=== PATIENT | female | born 1940 | race Caucasian/White ===

== ENCOUNTER 2018-05-28 06:53 | Emergency (ER) | payer MEDICARE ==
--- NOTE | 2018-05-28 07:39 | EDM.PDOC ---
ED HPI GENERAL MEDICAL PROBLEM - General Chief Complaint: Respiratory Problem Stated Complaint: dyspnea Time Seen by Provider: 05/28/18 07:22 Source of Information: Reports: Patient History Limitations: Reports: No Limitations - History of Present Illness INITIAL COMMENTS - FREE TEXT/NARRATIVE: States that she couldn't sleep last night and then this morning she felt SOB. States that she replaced the mask on her cpap recently and wonders if that was it. EMS states that they found her in recliner with cpap on with poor seal. When I examined her she states that she feels well except she couldn't sleep last night and this morning she felt SOB. No cough. She states that she feels good now. Denies any chest pain or ever having edema. Onset: Sudden Duration: Resolved Prior to Arrival Associated Symptoms: Denies: Chest Pain, Cough, cough w sputum - Related Data Allergies Allergy/AdvReac Type Severity Reaction Status Date / Time propoxyphene [From Darvon] Allergy Other Verified 05/28/18 07:03 Home Meds: Home Meds PARoxetine HCl [Paxil] 40 mg PO DAILY 05/28/18 [History] buPROPion [Wellbutrin SR] 100 mg PO DAILY 05/28/18 [History] traZODone HCl [Trazodone HCl] 50 mg PO DAILY 05/28/18 [History] Past Medical History Cardiovascular History: Reports: Other (See Below) Other Cardiovascular History: Cotpe-Thsgqudsw-Udjmh Syndrome Respiratory History: Reports: Sleep Apnea - Past Surgical History Cardiovascular Surgical History: Reports: Other (See Below) 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 Musculoskeletal Surgical History: Reports: Arthroscopic Knee Social & Family History - Tobacco Use Smoking Status *Q: Never Smoker - Recreational Drug Use Recreational Drug Use: No - Living Situation & Occupation Living situation: Reports: , Alone Occupation: Retired ED ROS GENERAL - Review of Systems Review Of Systems: See Below Constitutional: Denies: Fever, Chills, Weakness HEENT: Reports: No Symptoms Respiratory: Reports: Other (see HPI) Cardiovascular: Denies: Chest Pain, Edema Endocrine: Reports: No Symptoms GI/Abdominal: Reports: No Symptoms Musculoskeletal: Reports: No Symptoms Skin: Reports: No Symptoms Neurological: Reports: No Symptoms. Denies: Confusion ED EXAM, GENERAL - Physical Exam Exam: See Below Exam Limited By: No Limitations General Appearance: Alert, WD/WN, No Apparent Distress Ears: Normal External Exam, Normal Canal, Normal TMs Nose: Normal Inspection Throat/Mouth: Normal Inspection, Normal Oropharynx Head: Atraumatic, Normocephalic Neck: Normal Inspection, Supple, Non-Tender, Full Range of Motion Respiratory/Chest: No Respiratory Distress, Lungs Clear, Normal Breath Sounds Cardiovascular: Regular Rate, Rhythm, No Edema GI/Abdominal: Normal Bowel Sounds, Soft, Non-Tender, No Organomegaly Back Exam: Normal Inspection, Full Range of Motion Extremities: Normal Inspection, No Pedal Edema, Normal Capillary Refill Neurological: Alert, Oriented, CN II-XII Intact Skin Exam: Warm, Dry, Intact EKG INTERPRETATION EKG Date: 05/28/18 Rhythm: Other (1st degree AV block) Rate (Beats/Min): 68 Course - Vital Signs Last Recorded V/S: Last Vital Signs Temp 99 F 05/28/18 06:54 Pulse 72 05/28/18 06:54 Resp 28 H 05/28/18 06:54 BP 150/76 H 05/28/18 06:54 Pulse Ox 98 05/28/18 06:54 - Orders/Labs/Meds Orders: Active Orders 24 hr Category Date Time Status Chest 2V [CR] Stat Exams 05/28/18 07:10 Taken COMPREHENSIVE METABOLIC PN,CMP [CHEM] Stat Lab 05/28/18 07:20 Received CREATINE KINASE,CK [CHEM] Stat Lab 05/28/18 07:20 Received D Dimer [D-DIMER QUANTITATIVE] [COAG] Stat Lab 05/28/18 07:20 Received LACTATE DEHYDROGENASE,LDH [CHEM] Stat Lab 05/28/18 07:20 Received TROPONIN I [CHEM] Stat Lab 05/28/18 07:20 Received EKG 12 Lead [EK] Routine Ther 05/28/18 07:10 Ordered Labs: Laboratory Tests 05/28/18 Range/Units 07:11 WBC 4.6 L (5.0-10.0) 10^3/uL RBC 4.07 (4.00-5.50) 10^6/uL Hgb 12.5 (12.0-16.0) g/dL Hct 37.9 (37.0-47.0) % MCV 93.1 (82.0-94.0) fL MCH 30.7 (27.0-32.0) pg MCHC 33.0 (33.0-38.0) g/dL RDW Coeff of Ariela 12.3 (11.0-15.0) % Plt Count 196 (150-400) 10^3/uL Neut % (Auto) 72.9 (35-85) % Lymph % (Auto) 15.8 (10-55) % [place] % (Auto) 9.6 (0-16) % Eos % (Auto) 1.3 (0-5) % Baso % (Auto) 0.4 (0-3) % Neut # (Auto) 3.32 (1.80-7.00) 10^3/uL Lymph # (Auto) 0.72 L (1.00-4.80) 10^3/uL [place] # (Auto) 0.44 (0.00-0.80) 10^3/uL Eos # (Auto) 0.06 (0.00-0.45) 10^3/uL Baso # (Auto) 0.02 10^3/uL - Re-Assessments/Exams Free Text/Narrative Re-Assessment/Exam: 05/28/18 07:52 In to discuss lab, CXR and EKG with pt and sister. All are normal. Discussed that she may need to have her cpap checked. She feels that the mask is too small. She will call her supplier and recheck it. Current O2 sat on room air is 97%. Departure - Departure Time of Disposition: 07:53 Disposition: Home, Self-Care 01 Condition: Good Clinical Impression: Sleep apnea in adult - Discharge Information *PRESCRIPTION DRUG MONITORING PROGRAM REVIEWED*: Not Applicable *COPY OF PRESCRIPTION DRUG MONITORING REPORT IN PATIENT ALESHIA: Not Applicable Additional Instructions: call supplier of cpap to have them look at machine and check on fit of mask Recheck if any new concerns noted. - Problem List & Annotations (1) Sleep apnea in adult SNOMED Code(s): 53756378 Code(s): G47.30 - SLEEP APNEA, UNSPECIFIED Status: Chronic Priority: Medium - Problem List Review Problem List Initiated/Reviewed/Updated: Yes - My Orders Last 24 Hours: My Active Orders 05/28/18 07:10 Chest 2V [CR] Stat EKG 12 Lead [EK] Routine 05/28/18 07:20 COMPREHENSIVE METABOLIC PN,CMP [CHEM] Stat CREATINE KINASE,CK [CHEM] Stat D Dimer [D-DIMER QUANTITATIVE] [COAG] Stat LACTATE DEHYDROGENASE,LDH [CHEM] Stat TROPONIN I [CHEM] Stat - Assessment/Plan Last 24 Hours: My Active Orders 05/28/18 07:10 Chest 2V [CR] Stat EKG 12 Lead [EK] Routine 05/28/18 07:20 COMPREHENSIVE METABOLIC PN,CMP [CHEM] Stat CREATINE KINASE,CK [CHEM] Stat D Dimer [D-DIMER QUANTITATIVE] [COAG] Stat LACTATE DEHYDROGENASE,LDH [CHEM] Stat TROPONIN I [CHEM] Stat
[2018-05-28 07:42] LABS: CHLORIDE,CL 106 mEq/L (98-106); SODIUM,NA 141 mEq/L (136-145)
== END 2018-05-28 08:00 | disposition home or self-care (01) ==
LOC: CC.ED 06:53
DX: G47.30 Sleep apnea, unspecified (principal); Z88.8 Allergy status to other drugs, medicaments and biological substances
CPT/HCPCS: 36415; 71046; 80053; 82550; 83615; 84484; 85025; 85379; 93005; 99285

== ENCOUNTER 2020-08-16 14:18 | Inpatient (IN) | payer MEDICARE ==
[2020-08-16 14:49] LABS: O2 DELIVERY DEVICE OM
[2020-08-16 14:56] LABS: BASE EXCESS ARTERIAL 1.3 (-2.0-3.0); BICARBONATE,ARTERIAL 22.4 mm/L (22.0-26.0); O2 SATURATION ARTERIAL 100 % (95-98); PCO2 ARTERIAL 21 mm/Hg0 (35-45); PO2 ARTERIAL 188 mm/Hg (80-100)
[2020-08-16 15:15] LABS: CHLORIDE,CL 102 mEq/L (98-106); SODIUM,NA 141 mEq/L (136-145)
[2020-08-16 15:26] LABS: PTT,PARTIAL THROMBOPLSTIN TIME 22.2 SEC (23.2-32.3)
[2020-08-16] MEDS ORDERED: Potassium Chloride 20 MEQ in Premix Bag 1 BAG IV ONE (15:28)
[2020-08-16] MEDS ORDERED: cefTRIAXone 1 GM Vial IVPUSH SCH (15:30)
[2020-08-16] MEDS: Sodium Chloride 0.9% 1,000 ML IV SCH ×2 (16:29→21:26)
--- NOTE | 2020-08-16 17:28 | EDM.PDOC ---
ED HPI GENERAL MEDICAL PROBLEM - General Chief Complaint: General Stated Complaint: SOB/TINGLING FT AND HANDS Time Seen by Provider: 08/16/20 14:27 Source of Information: Reports: Patient, EMS History Limitations: Reports: Altered Mental Status - History of Present Illness INITIAL COMMENTS - FREE TEXT/NARRATIVE: Gail is an 80 yo female who was brought into the ED via [facility] with concerns of shortness of breath and tingling in her hands and feet. Symptoms started today. She had called a relative (nephew) who felt she needed further evaluation. Patient lives at home alone by [address]. She has relatives who check on her daily and bring her meals. She denied any chest pain. No headaches. Denies any upper respiratory symptoms. Denied any diarrhea. States she was urina ting a lot. Initially upon arrival, she had an altered mental status. Patient did want to sleep mostly. 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 Denies: Wheezing Cardiovascular: Denies: Chest Pain, Palpitations, Syncope GI/Abdominal: Reports: No Symptoms : Reports: Frequency Musculoskeletal: Reports: No Symptoms Skin: Reports: No Symptoms Neurological: Reports: Confusion. Denies: Headache, Seizure, Syncope, Trouble Speaking, Difficulty Walking, Weakness, Change in Speech Psychiatric: Reports: No Symptoms ED EXAM, GENERAL - Physical Exam Exam: See Below Exam Limited By: Altered Mental Status (initially) General Appearance: Lethargic, Thin Eye Exam: Bilateral Eye: EOMI, PERRL Ears: Normal External Exam, Hearing Grossly Normal Nose: Normal Inspection, Normal Mucosa, No Blood Throat/Mouth: Normal Inspection, Normal Lips, Normal Oropharynx, Normal Voice, No Airway Compromise Head: Atraumatic, Normocephalic Neck: Normal Inspection, Supple, Non-Tender Respiratory/Chest: No Respiratory Distress, Lungs Clear, Normal Breath Sounds, No Accessory Muscle Use Cardiovascular: Regular Rate, Rhythm, No Edema, No Murmur GI/Abdominal: Normal Bowel Sounds, Soft, Non-Tender, No Organomegaly, No Distention, No Mass Extremities: Normal Inspection, No Pedal Edema Neurological: Alert, Slow to Respond Psychiatric: Flat Affect Skin Exam: Cool #1 Interpretation EKG Date: 08/16/20 Time: 14:43 Comparison: NA - No Prior EKG Course - Vital Signs Last Recorded V/S: Last Vital Signs Temp 97.2 F 08/16/20 16:31 Pulse 72 08/16/20 16:31 Resp 18 08/16/20 16:31 BP 157/73 H 08/16/20 16:31 Pulse Ox 100 08/16/20 16:31 - Orders/Labs/Meds Orders: Active Orders 24 hr Category Date Time Status Telemetry Monitoring [Cardiac Monitoring] [RC] 0800, Care 08/16/20 15:28 Active 2000 Chest 2V [CR] Routine Exams 08/16/20 Taken Head wo Cont [CT] Stat Exams 08/16/20 16:17 Taken CULTURE BLOOD [BC] Stat Lab 08/16/20 15:48 Received CULTURE BLOOD [BC] Stat Lab 08/16/20 15:48 Received Potassium Chloride [KCL in Water 20 MEQ/100 ML] 20 meq Med 08/16/20 15:28 Active Premix Bag 1 bag IV ONETIME Sodium Chloride 0.9% [Normal Saline] 1,000 ml Med 08/16/20 15:30 Active IV ASDIRECTED cefTRIAXone [Rocephin] Med 08/16/20 15:30 Active 1 gm IVPUSH Q24H Blood Culture x2 Reflex Set [OM.PC] Stat Oth 08/16/20 15:27 Ordered Medication Orders Ceftriaxone Sodium (Ceftriaxone 1 Gm Vial) 1 gm IVPUSH Q24H [facility] Last Admin: 08/16/20 16:29 Dose: 1 gm Documented by: ADOLFO Sodium Chloride (Normal Saline) 1,000 mls @ 75 mls/hr IV ASDIRECTED [facility] Last Admin: 08/16/20 16:29 Dose: 75 mls/hr Documented by: ADOLFO Potassium Chloride 20 meq/ (Premix) 100 mls @ 25 mls/hr IV ONETIME ONE Stop: 08/16/20 19:27 Last Admin: 08/16/20 16:30 Dose: 25 mls/hr Documented by: ADOLFO Labs: Laboratory Tests 08/16/20 08/16/20 08/16/20 Range/Units 14:45 14:45 14:45 WBC 6.6 (5.0-10.0) 10^3/uL RBC 4.28 (4.00-5.50) 10^6/uL Hgb 13.7 (12.0-16.0) g/dL Hct 40.2 (37.0-47.0) % MCV 93.9 (82.0-94.0) fL MCH 32.0 (27.0-32.0) pg MCHC 34.1 (33.0-38.0) g/dL RDW Coeff of Ariela 13.3 (11.0-15.0) % Plt Count 249 (150-400) 10^3/uL Neut % (Auto) 72.3 (35-85) % Lymph % (Auto) 18.0 (10-55) % [place] % (Auto) 8.6 (0-16) % Eos % (Auto) 0.8 (0-5) % Baso % (Auto) 0.3 (0-3) % Neut # (Auto) 4.78 (1.80-7.00) 10^3/uL Lymph # (Auto) 1.19 (1.00-4.80) 10^3/uL [place] # (Auto) 0.57 (0.00-0.80) 10^3/uL Eos # (Auto) 0.05 (0.00-0.45) 10^3/uL Baso # (Auto) 0.02 10^3/uL PT 10.6 (9.7-12.3) SEC INR 0.97 (0.92-1.18) APTT 22.2 L (23.2-32.3) SEC D-Dimer, Quantitative 0.42 (0.00-0.50) ABG pH (7.35-7.45) ABG pCO2 (35-45) mm/Hg0 ABG pO2 (80-100) mm/Hg ABG HCO3 (22.0-26.0) mm/L ABG O2 Saturation (95-98) % ABG Base Excess (-2.0-3.0) O2 Delivery Device Oxygen Flow Rate Sodium 141 (136-145) mEq/L Potassium 3.1 L D (3.5-5.0) mEq/L Chloride 102 (98-106) mEq/L Carbon Dioxide 23 (21-32) mmol/L BUN 27 H (7-18) mg/dL Creatinine 0.8 (0.6-1.0) mg/dL Est Cr Clr Drug Dosing 51.63 mL/min Estimated GFR (MDRD) > 60 (>=60) mL/min Glucose 106 H D (75-99) mg/dL Lactic Acid (0.4-2.0) mmol/L Calcium 9.8 (8.4-10.1) mg/dL Magnesium (1.8-2.4) mg/dL Total Bilirubin 0.6 (0.0-1.0) mg/dL AST 22 (15-37) U/L ALT 23 (12-78) U/L Alkaline Phosphatase 79 (46-116) U/L Lactate Dehydrogenase 199 H (100-190) U/L Creatine Kinase 101 (21-215) U/L Troponin I < 0.017 (0.00-0.06) ng/mL C-Reactive Protein < 0.2 L (0.2-0.8) mg/dL Total Protein 7.5 (6.4-8.2) g/dL Albumin 4.1 (3.4-5.0) g/dL Lipase 70 L (73-393) U/L Urine Color (YELLOW) Urine Appearance (CLEAR) Urine pH (4.5-8.0) Ur Specific [place]oss (1.003-1.020) Urine Protein (NEGATIVE) mg/dL Urine Glucose (UA) (NEGATIVE) mg/dL Urine Ketones (NEGATIVE) mg/dL Urine Occult Blood (NEGATIVE) Urine Nitrite (NEGATIVE) Urine Bilirubin (NEGATIVE) Urine Urobilinogen (0.2-1.0) EU/dL Ur Leukocyte Esterase (NEGATIVE) Urine RBC (0-5) /HPF Urine WBC (0-5) /HPF Ur Epithelial Cells (NOT SEEN) /HPF Amorphous Sediment (NOT SEEN) /HPF Urinalysis Comment SARS CoV-2 RNA Rapid LETTY (NEGATIVE) 08/16/20 08/16/20 08/16/20 Range/Units 14:48 14:51 15:17 WBC (5.0-10.0) 10^3/uL RBC (4.00-5.50) 10^6/uL Hgb (12.0-16.0) g/dL Hct (37.0-47.0) % MCV (82.0-94.0) fL MCH (27.0-32.0) pg MCHC (33.0-38.0) g/dL RDW Coeff of Ariela (11.0-15.0) % Plt Count (150-400) 10^3/uL Neut % (Auto) (35-85) % Lymph % (Auto) (10-55) % [place] % (Auto) (0-16) % Eos % (Auto) (0-5) % Baso % (Auto) (0-3) % Neut # (Auto) (1.80-7.00) 10^3/uL Lymph # (Auto) (1.00-4.80) 10^3/uL [place] # (Auto) (0.00-0.80) 10^3/uL Eos # (Auto) (0.00-0.45) 10^3/uL Baso # (Auto) 10^3/uL PT (9.7-12.3) SEC INR (0.92-1.18) APTT (23.2-32.3) SEC D-Dimer, Quantitative (0.00-0.50) ABG pH 7.62 H (7.35-7.45) ABG pCO2 21 L (35-45) mm/Hg0 ABG pO2 188 H (80-100) mm/Hg ABG HCO3 22.4 (22.0-26.0) mm/L ABG O2 Saturation 100 H (95-98) % ABG Base Excess 1.3 (-2.0-3.0) O2 Delivery Device Om Oxygen Flow Rate 6.0 Sodium (136-145) mEq/L Potassium (3.5-5.0) mEq/L Chloride (98-106) mEq/L Carbon Dioxide (21-32) mmol/L BUN (7-18) mg/dL Creatinine (0.6-1.0) mg/dL Est Cr Clr Drug Dosing mL/min Estimated GFR (MDRD) (>=60) mL/min Glucose (75-99) mg/dL Lactic Acid 3.1 H (0.4-2.0) mmol/L Calcium (8.4-10.1) mg/dL Magnesium (1.8-2.4) mg/dL Total Bilirubin (0.0-1.0) mg/dL AST (15-37) U/L ALT (12-78) U/L Alkaline Phosphatase (46-116) U/L Lactate Dehydrogenase (100-190) U/L Creatine Kinase (21-215) U/L Troponin I (0.00-0.06) ng/mL C-Reactive Protein (0.2-0.8) mg/dL Total Protein (6.4-8.2) g/dL Albumin (3.4-5.0) g/dL Lipase (73-393) U/L Urine Color Yellow (YELLOW) Urine Appearance Cloudy (CLEAR) Urine pH 7.5 (4.5-8.0) Ur Specific Voss 1.025 H (1.003-1.020) Urine Protein Negative (NEGATIVE) mg/dL Urine Glucose (UA) Negative (NEGATIVE) mg/dL Urine Ketones 15 H (NEGATIVE) mg/dL Urine Occult Blood Negative (NEGATIVE) Urine Nitrite Negative (NEGATIVE) Urine Bilirubin Negative (NEGATIVE) Urine Urobilinogen 1.0 (0.2-1.0) EU/dL Ur Leukocyte Esterase Negative (NEGATIVE) Urine RBC Not seen (0-5) /HPF Urine WBC 0-5 (0-5) /HPF Ur Epithelial Cells Few H (NOT SEEN) /HPF Amorphous Sediment Moderate H (NOT SEEN) /HPF Urinalysis Comment SARS CoV-2 RNA Rapid LETTY (NEGATIVE) 08/16/20 08/16/20 Range/Units 15:26 15:26 WBC (5.0-10.0) 10^3/uL RBC (4.00-5.50) 10^6/uL Hgb (12.0-16.0) g/dL Hct (37.0-47.0) % MCV (82.0-94.0) fL MCH (27.0-32.0) pg MCHC (33.0-38.0) g/dL RDW Coeff of Ariela (11.0-15.0) % Plt Count (150-400) 10^3/uL Neut % (Auto) (35-85) % Lymph % (Auto) (10-55) % [place] % (Auto) (0-16) % Eos % (Auto) (0-5) % Baso % (Auto) (0-3) % Neut # (Auto) (1.80-7.00) 10^3/uL Lymph # (Auto) (1.00-4.80) 10^3/uL [place] # (Auto) (0.00-0.80) 10^3/uL Eos # (Auto) (0.00-0.45) 10^3/uL Baso # (Auto) 10^3/uL PT (9.7-12.3) SEC INR (0.92-1.18) APTT (23.2-32.3) SEC D-Dimer, Quantitative (0.00-0.50) ABG pH (7.35-7.45) ABG pCO2 (35-45) mm/Hg0 ABG pO2 (80-100) mm/Hg ABG HCO3 (22.0-26.0) mm/L ABG O2 Saturation (95-98) % ABG Base Excess (-2.0-3.0) O2 Delivery Device Oxygen Flow Rate Sodium (136-145) mEq/L Potassium (3.5-5.0) mEq/L Chloride (98-106) mEq/L Carbon Dioxide (21-32) mmol/L BUN (7-18) mg/dL Creatinine (0.6-1.0) mg/dL Est Cr Clr Drug Dosing mL/min Estimated GFR (MDRD) (>=60) mL/min Glucose (75-99) mg/dL Lactic Acid (0.4-2.0) mmol/L Calcium (8.4-10.1) mg/dL Magnesium 1.9 (1.8-2.4) mg/dL Total Bilirubin (0.0-1.0) mg/dL AST (15-37) U/L ALT (12-78) U/L Alkaline Phosphatase (46-116) U/L Lactate Dehydrogenase (100-190) U/L Creatine Kinase (21-215) U/L Troponin I (0.00-0.06) ng/mL C-Reactive Protein (0.2-0.8) mg/dL Total Protein (6.4-8.2) g/dL Albumin (3.4-5.0) g/dL Lipase (73-393) U/L Urine Color (YELLOW) Urine Appearance (CLEAR) Urine pH (4.5-8.0) Ur Specific [place]oss (1.003-1.020) Urine Protein (NEGATIVE) mg/dL Urine Glucose (UA) (NEGATIVE) mg/dL Urine Ketones (NEGATIVE) mg/dL Urine Occult Blood (NEGATIVE) Urine Nitrite (NEGATIVE) Urine Bilirubin (NEGATIVE) Urine Urobilinogen (0.2-1.0) EU/dL Ur Leukocyte Esterase (NEGATIVE) Urine RBC (0-5) /HPF Urine WBC (0-5) /HPF Ur Epithelial Cells (NOT SEEN) /HPF Amorphous Sediment (NOT SEEN) /HPF Urinalysis Comment SARS CoV-2 RNA Rapid LETTY Negative (NEGATIVE) Meds: Medications Generic Name Dose Route Start Last Admin Trade Name Freq PRN Reason Stop Dose Admin Ceftriaxone Sodium 1 gm 08/16/20 15:30 08/16/20 16:29 Ceftriaxone 1 Gm Vial IVPUSH 1 gm Q24H TRI Administration Sodium Chloride 1,000 mls @ 75 mls/hr 08/16/20 15:30 08/16/20 16:29 Normal Saline IV 75 mls/hr ASDIRECTED TRI Administration Potassium Chloride 20 meq/ 100 mls @ 25 mls/hr 08/16/20 15:28 08/16/20 16:30 Premix IV 08/16/20 19:27 25 mls/hr ONETIME ONE Administration Departure - Departure Time of Disposition: 16:30 Disposition: Admitted As Inpatient 65 Clinical Impression: Altered mental status Qualifiers: Altered mental status type: transient alteration of awareness Qualified Co de(s): R40.4 - Transient alteration of awareness - Discharge Information *PRESCRIPTION DRUG MONITORING PROGRAM REVIEWED*: Not Applicable *COPY OF PRESCRIPTION DRUG MONITORING REPORT IN PATIENT ALESHIA: Not Applicable Sepsis Event Note (ED) - Evaluation Sepsis Screening Result: Possible Sepsis Risk - Focused Exam Vital Signs: Vital Signs Temp Pulse Resp BP Pulse Ox 08/16/20 15:39 96.7 F L 80 24 H 145/89 H 85 L 08/16/20 15:12 70 20 179/95 H 99 08/16/20 14:57 68 20 176/85 H 100 08/16/20 14:42 96.7 F L 65 20 153/73 H 99 08/16/20 14:27 96.7 F L 80 24 H 145/89 H 85 L - Problem List & Annotations (1) Altered mental status SNOMED Code(s): 830940736 Code(s): R41.82 - ALTERED MENTAL STATUS, UNSPECIFIED Status: Acute Current Visit: Yes Qualifiers: Altered mental status type: transient alteration of awareness Qualified Code(s): R40.4 - Transient alteration of awareness - My Orders Last 24 Hours: My Active Orders 08/16/20 Chest 2V [CR] Routine 08/16/20 15:27 Blood Culture x2 Reflex Set [OM.PC] Stat 08/16/20 15:28 Telemetry Monitoring [Cardiac Monitoring] [RC] 0800,1999 Potassium Chloride [KCL in Water 20 MEQ/100 ML] 20 meq Premix Bag 1 bag IV ONETIME 08/16/20 15:30 Sodium Chloride 0.9% [Normal Saline] 1,000 ml IV ASDIRECTED cefTRIAXone [Rocephin] 1 gm IVPUSH Q24H 08/16/20 15:48 CULTURE BLOOD [BC] Stat CULTURE BLOOD [BC] Stat 08/16/20 16:17 Head wo Cont [CT] Stat - Assessment/Plan Admission H&P: Please use this note as an admission H&P Last 24 Hours: My Active Orders 08/16/20 Chest 2V [CR] Routine 08/16/20 15:27 Blood Culture x2 Reflex Set [OM.PC] Stat 08/16/20 15:28 Telemetry Monitoring [Cardiac Monitoring] [RC] 0800,2000 Potassium Chloride [KCL in Water 20 MEQ/100 ML] 20 meq Premix Bag 1 bag IV ONETIME 08/16/20 15:30 Sodium Chloride 0.9% [Normal Saline] 1,000 ml IV ASDIRECTED cefTRIAXone [Rocephin] 1 gm IVPUSH Q24H 08/16/20 15:48 CULTURE BLOOD [BC] Stat CULTURE BLOOD [BC] Stat 08/16/20 16:17 Head wo Cont [CT] Stat Plan: Patient initially had intermittent episodes of altered mental status. GCS of 15. No sign of trauma. No other neurological deficits noted. Lactic acid was elevated. Concerns of sepsis; however, no known cause identified. WBC normal. Lactic acid elevated. Urinalysis clear. Chest x-ray showed no acute cardiopulmonary disease. CT head negative. Consulted with Dr. arreguin and will admi t to acute care. 1 gm of Rocephin given IV. Blood cultures ordered prior. Patient is more alert and responding to all questions. Patient is ambulatory and currently showing no sign of distress. Vital signs are stable.
[2020-08-16] MEDS ORDERED: Acetaminophen 325 MG Tab PO PRN (17:57)
[2020-08-16] MEDS ORDERED: Ondansetron 4 MG/2 ML SDV IVPUSH PRN (17:57)
[2020-08-16] MEDS ORDERED: Docusate Sodium 100 MG Cap PO PRN (20:00)
[2020-08-16] MEDS ORDERED: Enoxaparin 40 MG/0.4 ML Syringe SUBCUT SCH (20:00)
[2020-08-17 07:53] LABS: CHLORIDE,CL 108 mEq/L (98-106); SODIUM,NA 143 mEq/L (136-145)
[2020-08-17] MEDS ORDERED: cefTRIAXone 1 GM Vial IVPUSH SCH (13:30)
--- NOTE | 2020-08-18 15:58 | PCM.DCSUM1 ---
Discharge Summary - Hospital Course HPI Initial Comments: Gail is an 80 yo female who was admitted to the hospital yesterday evening. She was initially brought into the ED via [facility] with concerns of shortness of breath and tingling in her hands and feet. Symptoms had started yesterday. She had called a relative (nephew) who felt she needed further evaluation. Patient lives at home alone by [place]. She has relatives who check on her daily and bring her meals. She denied any chest pain. No headaches. Denies any upper respiratory symptoms. Denied any diarrhea. States she was urinating a lot. Initially upon arrival, she had an altered mental status. Patient did want to sleep mostly. Diagnosis: Stroke: No - Discharge Data Discharge Date: 08/17/20 Discharge Disposition: Home, Self-Care 01 Condition: Good - Referral to Home Health Primary Care Physician: PCP Unknown - Discharge Diagnosis/Problem(s) (1) Altered mental status SNOMED Code(s): 437463412 ICD Code: R41.82 - ALTERED MENTAL STATUS, UNSPECIFIED Status: Acute Qualifiers: Altered mental status type: transient alteration of awareness Qualified Code(s): R40.4 - Transient alteration of awareness - Patient Instructions Diet: Usual Diet as Tolerated Activity: As Tolerated Notify Provider of: Fever - Discharge Plan *PRESCRIPTION DRUG MONITORING PROGRAM REVIEWED*: Not Applicable *COPY OF PRESCRIPTION DRUG MONITORING REPORT IN PATIENT ALESHIA: Not Applicable Prescriptions/Med Rec: Cefuroxime [Ceftin] 250 mg PO BID #14 tab Home Medications: Home Meds Meloxicam 7.5 mg PO DAILY 08/16/20 [History] Acetaminophen [Tylenol] 650 mg PO Q4H PRN tablet 08/17/20 [Rx] Cefuroxime [Ceftin] 250 mg PO BID #14 tab 08/17/20 [Rx] Oxygen Therapy Mode: Room Air Forms: ED Department Discharge Referrals: Royal Sevilla PA-C [Emergency Provider] - (2 weeks) - Discharge Summary/Plan Comment DC Time >30 min.: Yes Discharge Summary/Plan Comment: Will start patient on Ceftin 250mg twice a day for 7 days. Patient is to follow up with primary in the next 2 weeks. Patient feels safe returning home and wishes to be discharged today. She has been active walking around the hallway and her room. She is fully alert and aware of her symptoms yesterday and denies any further presence of them. - General Info Subjective Update: Patient is in good spirits this morning. She is up and walking around. Denies any further symptoms at this time. - Review of Systems General: Reports: No Symptoms HEENT: Reports: No Symptoms Pulmonary: Reports: No Symptoms Cardiovascular: Reports: No Symptoms Gastrointestinal: Reports: No Symptoms Genitourinary: Reports: No Symptoms Musculoskeletal: Reports: No Symptoms Skin: Reports: No Symptoms Neurological: Reports: No Symptoms - Patient Data Vitals - Most Recent: Last Vital Signs Temp 96.4 F L 08/17/20 11:54 Pulse 59 L 08/17/20 11:54 Resp 16 08/17/20 11:54 BP 149/78 H 08/17/20 11:54 Pulse Ox 100 08/17/20 11:54 Weight - Most Recent: 127 lb 9.6 oz ARACELY Results - Last 24 hrs: Microbiology 08/16/20 15:48 Aerobic Blood Culture - Preliminary Blood - Venous NO GROWTH AFTER 2 DAYS Anaerobic Blood Culture - Preliminary NO GROWTH AFTER 2 DAYS 08/16/20 15:48 Aerobic Blood Culture - Preliminary Blood - Venous - Lab Draw NO GROWTH AFTER 2 DAYS Anaerobic Blood Culture - Preliminary NO GROWTH AFTER 2 DAYS Med Orders - Current: Current Medications Discontinued Medications Acetaminophen (Acetaminophen 325 Mg Tab) 650 mg PO Q4H PRN PRN Reason: Pain (Mild 1-3)/fever Ceftriaxone Sodium (Ceftriaxone 1 Gm Vial) 1 gm IVPUSH Q24H [facility] Last Admin: 08/16/20 16:29 Dose: 1 gm Documented by: Ceftriaxone Sodium (Ceftriaxone 1 Gm Vial) 1 gm IVPUSH Q24H [facility] Last Admin: 08/17/20 13:29 Dose: 1 gm Documented by: Docusate Sodium (Docusate Sodium 100 Mg Cap) 100 mg PO BID PRN PRN Reason: Constipation Enoxaparin Sodium (Enoxaparin 40 Mg/0.4 Ml Syringe) 40 mg SUBCUT BEDTIME [facility] Last Admin: 08/16/20 20:51 Dose: 40 mg Documented by: Sodium Chloride (Normal Saline) 1,000 mls @ 75 mls/hr IV ASDIRECTED [facility] Last Admin: 08/16/20 21:26 Dose: 75 mls/hr Documented by: Potassium Chloride 20 meq/ (Premix) 100 mls @ 25 mls/hr IV ONETIME ONE Stop: 08/16/20 19:27 Last Admin: 08/16/20 16:30 Dose: 25 mls/hr Documented by: Ondansetron HCl (Ondansetron 4 Mg/2 Ml Sdv) 4 mg IVPUSH Q4H PRN PRN Reason: Nausea/Vomiting - Exam General: Reports: Alert, Oriented, Cooperative, No Acute Distress Lungs: Reports: Clear to Auscultation, Normal Respiratory Effort Cardiovascular: Reports: Regular Rate, Regular Rhythm GI/Abdominal Exam: Normal Bowel Sounds, Soft, Non-Tender, No Organomegaly Extremities: Normal Inspection, No Pedal Edema Skin: Reports: Warm, Dry, Intact Neurological: Reports: No New Focal Deficit Psy/Mental Status: Reports: Alert, Normal Affect, Normal Mood
== END 2020-08-17 13:49 | disposition home or self-care (01) | DRG 884 ==
LOC: CC.ED 14:18 → UNDOADMIN 16:29 → CC.MS 16:29
PROVIDERS: ADMIT Physician Assistant Medical; ATTEND Family Medicine
DX: R40.4 Transient alteration of awareness (principal); R41.82 Altered mental status, unspecified; G47.30 Sleep apnea, unspecified; M06.9 Rheumatoid arthritis, unspecified; R79.89 Other specified abnormal findings of blood chemistry; Z88.8 Allergy status to other drugs, medicaments and biological substances; G20 Parkinson's disease; I45.6 Pre-excitation syndrome; Z20.822 Contact with and (suspected) exposure to COVID-19; Z88.5 Allergy status to narcotic agent; Z79.899 Other long term (current) drug therapy
CPT/HCPCS: 36415; 36600; 70450; 71046; 80048; 80053; 81001; 82550; 82803; 83605; 83615; 83690; 83735; 84484; 85025; 85379; 85610; 85730; 86140; 87040; 93005; 96365; 96375; 99285-25; J0696; J1650; J3480; J7030; U0002

== ENCOUNTER 2024-04-10 17:57 | Inpatient (IN) | payer MEDICARE ==
[2024-04-10] MEDS ORDERED: Ondansetron 4 MG/2 ML SDV IV PRN (18:29)
[2024-04-10] MEDS ORDERED: Docusate Sodium 100 MG Cap PO PRN (18:29)
[2024-04-10] MEDS ORDERED: Polyethylene Glycol 3350 Powder 17 GM Packet PO PRN (18:29)
[2024-04-10] MEDS ORDERED: Ondansetron 4 MG Tab.DIS PO PRN (18:29)
[2024-04-10] MEDS: cefTRIAXone 1 GM Vial IVPUSH SCH ×2 (19:02→19:03)
[2024-04-10] MEDS: Temazepam 15 MG Cap PO PRN (22:06)
[2024-04-10] MEDS: Acetaminophen 325 MG Tab PO PRN (22:07)
[2024-04-10] MEDS: LORazepam 2 MG/ML SDV IVPUSH STA (23:30)
[2024-04-10] MEDS: Acetaminophen/HYDROcodone 325-5 MG Tab PO PRN (23:36)
[2024-04-11] MEDS: Enoxaparin 40 MG/0.4 ML Syringe SUBCUT SCH (07:14)
[2024-04-11 07:47] LABS: BASOPHILS ABSOLUTE AUTO 0.03 10^3/uL (0.00-0.50); BASOPHILS PERCENT AUTO 0.3 % (0-1); EOSINOPHILS ABSOLUTE AUTO 0.04 10^3/uL (0.00-1.50); EOSINOPHILS PERCENT AUTO 0.4 % (0-6); HEMATOCRIT 30.6 % (37.0-47.0); HEMOGLOBIN 9.7 g/dL (12.0-16.0); IMMATURE GRAN ABSOLUTE AUTO 0.01 10^3/uL (0.00-0.49); IMMATURE GRAN PERCENT AUTO 0.1 % (0.0-4.9); LYMPHOCYTES ABSOLUTE AUTO 0.64 10^3/uL (0.60-5.00); MEAN CORPUSCULAR HEMOGLOBIN 30.7 pg (27.0-32.0); MEAN CORPUSCULAR HGB CONC 31.7 g/dL (32.0-36.0); MEAN CORPUSCULAR VOLUME 96.8 fL (83.0-97.0); MONOCYTES ABSOLUTE AUTO 0.38 10^3/uL (0.00-1.50); MONOCYTES PERCENT AUTO 3.6 % (0-10); NEUTROPHILS PERCENT AUTO 89.6 % (41-71); PLATELET COUNT,PLT 273 10^3/uL (150-400); RED BLOOD CELL COUNT 3.16 x10^6/uL (4.00-5.50); WHITE BLOOD CELL COUNT,WBC 10.7 10^3/uL (4.0-11.0)
[2024-04-11 08:00] LABS: CALCIUM 7.8 mg/dL (8.4-10.1); CREATININE 0.8 mg/dL (0.6-1.0); EST CRCL DRUG DOSING (CG) 37.6 mL/min; MAGNESIUM 1.7 mg/dL (1.8-2.4); POTASSIUM,K 4.2 mEq/L (3.5-5.0)
[2024-04-11] MEDS: Cyclobenzaprine 10 MG Tab PO PRN (16:33)
[2024-04-11] MEDS: Oxyquinoline/Emollient 0.3% Oint 4 OZ Canister TOP PRN (17:09)
[2024-04-11] MEDS: fentaNYL 50 MCG/ML SDV IVPUSH ONE (19:35)
[2024-04-11 20:13] VITALS: BP 91/45; PULSE 68
== END 2024-04-11 20:50 | DRG 602 ==
LOC: CC.MS 17:57 → OBSVTOIN 17:57 → UNDOADMOB 17:57 → INTOOBSV 17:57 → OBSVTOIN 18:29 → CC.MS 18:29 → UNDODISIN 04-11 20:50
PROVIDERS: ADMIT Nurse Practitioner; ATTEND Nurse Practitioner
DX: L03.317 Cellulitis of buttock (principal); S72.011A Unspecified intracapsular fracture of right femur, initial encounter for closed fracture; L02.31 Cutaneous abscess of buttock; R62.7 Adult failure to thrive; L89.312 Pressure ulcer of right buttock, stage 2; R13.10 Dysphagia, unspecified; Z68.21 Body mass index [BMI] 21.0-21.9, adult; Z98.890 Other specified postprocedural states
CPT/HCPCS: 36415; 51702; 73700-RT; 80048; 83735; 85025; 99223; 99239; A9270-GY; J0696; J1650; J2060; J3010